=== PATIENT | female | born 1995 | race African-American/Black ===

== ENCOUNTER 2017-03-17 19:58 | Emergency (ER) | payer BC, OTHER ==
[~2017-03-17] VITALS: Ht 160 cm; Wt 49.0 kg
[~2017-03-17 19:58] MED LIST: A-B OTIC EAR DR15 ML OT; AMOXICILLIN500 M1 PO; DIFLUCAN150 M1 PO; MONISTAT 3 COM1 EACH VG; NAPROXEN 375 M375 M1 PO; SKELAXIN 800 M800 M1 PO
[2017-03-17 20:25] LABS: URINE BILIRUBIN NEGATIVE (Negative); URINE BLOOD 1+ (Negative); URINE COLOR YELLOW; URINE GLUCOSE-RANDOM* NEGATIVE (Negative); URINE KETONES NEGATIVE (Negative); URINE NITRITE NEGATIVE (Negative); URINE PROTEIN (DIPSTICK) TRACE (Negative); URINE SPECIFIC GRAVITY >= 1.030 (1.003-1.035); URINE UROBILINOGEN 0.2 E.U./dl (0.2-1.0)
[2017-03-17 20:32] LABS: SQUAMOUS >10 Many /LPF (0-3)
[2017-03-17 20:34] LABS: BACTERIA None Seen /HPF (None Seen); CASTS None Seen /LPF (None Seen); CRYSTALS None Seen /LPF (None Seen); URINE RBC 3-10 Few /HPF (0-2); URINE WBC 0-5 Rare /HPF (0-5)
[2017-03-17 22:08] VITALS: BP 117/73
[2017-03-20 03:08] LABS: CHLAMYDIA TRACHOMATIS-PCR Negative (Negative); NEISSERIA GONORRHEA-PCR Negative (Negative)
== END 2017-03-17 22:09 | disposition home or self-care (01) ==
LOC: ER 19:58
PROVIDERS: Physician Assistant
DX: N89.8 Other specified noninflammatory disorders of vagina (principal)

== ENCOUNTER 2021-03-09 19:15 | Emergency (ER) | payer BC, OTHER ==
[~2021-03-09] VITALS: Ht 160 cm; Wt 70.8 kg
[2021-03-09 19:50] LABS: URINE BILIRUBIN NEGATIVE (Negative); URINE BLOOD TRACE (Negative); URINE CLARITY CLEAR; URINE COLOR YELLOW; URINE GLUCOSE-RANDOM* NEGATIVE (Negative); URINE KETONES TRACE (Negative); URINE LEUKOCYTES-REFLEX NEGATIVE (Negative); URINE NITRITE-REFLEX NEGATIVE (Negative); URINE PROTEIN (DIPSTICK) NEGATIVE (Negative); URINE SPECIFIC GRAVITY >= 1.030 (1.005-1.035); URINE UROBILINOGEN 0.2 E.U./dl (0.2-1.0)
[2021-03-09 20:42] VITALS: BP 120/75
== END 2021-03-09 20:43 | disposition home or self-care (01) ==
LOC: ER 19:15
PROVIDERS: Physician Assistant
DX: Z20.2 Contact with and (suspected) exposure to infections with a predominantly sexual mode of transmission (principal)